=== PATIENT | male | born 1990 | race African-American/Black ===

== ENCOUNTER 2017-11-25 17:45 | Emergency (ER) | payer SELFPAY ==
[~2017-11-25] VITALS: Ht 177.8 cm; Wt 93.2 kg
[~2017-11-25 17:45] MED LIST: BACT800T5 PO; CEPH500C3 PO; TYLE3 PO
[2017-11-25 17:46] VITALS: BP 163/97; PULSE 72; RESP 14; TEMP 98.9; O2SAT 96
--- NOTE | 2017-11-25 19:33 | PD ---
Physical Exam Date Seen by Provider: Nov 25, 2017 Time Seen by Provider: 19:24 Narrative 27 year old male presents to the emergency department for evaluation of vomiting , diarrhea that started 24 hours ago. No fevers. Current pain is 8/10. Data Data Last Documented VS Vital Signs Date Time Temp Pulse Resp B/P (MAP) Pulse Ox O2 Delivery O2 Flow Rate FiO2 11/25/17 17:46 98.9 72 14 163/97 (119) 96 Orders Orders Complete Blood Count With Diff (11/25/17 17:55) Comprehensive Metabolic Panel (11/25/17 17:55) Lipase (11/25/17 17:55) Urinalysis - C+S If Indicated (11/25/17 17:55) MDM Supervised Visit with REFUGIO: No Narrative Course 27 year old male presents to the emergency department for GI symptoms for 24 hours. Patient is initially seen in triage. He left AMA before he could be moved to a medical bed. Diagnosis Primary Impression: Left against medical advice Disposition: 07 AGAINST MEDICAL ADVICE Carlee Konwles Nov 25, 2017 19:33
== END 2017-11-25 19:24 | disposition left against medical advice (07) ==
LOC: NED 17:45
DX: R11.10 Vomiting, unspecified (principal)
CPT/HCPCS: 99281